=== PATIENT | male | born 1950 | race Caucasian/White ===

== ENCOUNTER 2016-08-29 16:16 | Emergency (ER) | payer MEDICARE, OTHER ==
[~2016-08-29] VITALS: Ht 172.7 cm; Wt 61.4 kg
[2016-08-29 16:28] VITALS: BP 119/77; PULSE 106; RESP 16; O2SAT 96
--- NOTE | 2016-08-29 18:04 | ED.REPORT ---
HPI-Extremity Problem Upper Date of Service Aug 29, 2016 ED Provider: Kai CardenasO. 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 The tip of the finger was initially dark and swollen, but blood began seeping through the skin this morning. The patient can move his finger and his pain is manageable. Nursing Notes Stated Complaint: SMASHED FINGER Chief Complaint: Extremity Trauma Nursing Notes Reviewed: Yes Allergies: Coded Allergies: No Known Allergies (Unverified , 05/04/16) General Time Seen by MD: 18:04 Chief Complaint Finger injury right 3 Hx Obtained From: Patient Arrived By: Walk-in Onset Occurred: 3 days ago Symptom Duration: Since onset Location: : Finger right 3 Quality: Painful Severity: Current: Mild Severity: Maximum: Moderate Associated with: Reports: Swelling, Wound discharge (Blood), Denies: Fever, Unable to move joint Pertinent Negative: Relieved by nothing Immunizations: Unknown Recent Healthcare: No recent doctor visit Similar Sx Previous: No Past Medical History Past Medical History Colon cancer s/p surgical removal and ileostomy Cancer of tongue and lymph node Past Surgical History Ileostomy Central line placement Bone marrow transplant Smoking History Unknown if Ever Smoker Social History Other Social History: Good social support, , From out of town Ambulatory Status Independent Review of Systems Constitutional: Denies: Fever Musculoskeletal: Reports: Extremity pain (Right 3rd Finger), Extremity swelling (Right 3rd Finger) Skin: Reports Bruising (Right 3rd Finger) Complete sys rev & neg: except as marked. Respiratory: Denies: Non-productive cough, Shortness of breath GI: Denies: Vomiting Hematologic: Reports Bleeding (Right 3rd Finger) Physical Exam Initial Vital Signs Vital Signs (First) Date Time Temp Pulse Resp B/P Pulse Ox O2 Delivery O2 Flow Rate FiO2 08/29/16 16:28 36.8 106 16 119/77 96 08/29/16 19:42 Room Air Initial VS: Reviewed Head / Eyes: Atraumatic, Normocephalic ENT: Conjunctiva normal, No scleral icterus Neck: Supple, Full range of motion Skin: Warm, Dry, No cyanosis Neurologic: Alert, Oriented, Nonfocal Psychiatric: Mood/affect normal, Behavior normal, Normal thought content General/Constitutional: Awake, Alert, No acute distress Appearance / Presentation: Negative: Pale Mask in place Respiratory / Chest: Breath sounds NL, Breath sounds = bilat, No respiratory distress Cardiovascular: Heart rate NL, Regular rhythm, Heart sounds NL Wrist / Hand: Full range of motion Finger Exam : Finger Exam: Positive: Ecchymosis present (Dorsal aspect), Erythema present (Mild, to distal aspect), Finger name... (R middle), Subungual hematoma (100%), Swelling present... (Over dorsal aspect) Interpretation & Diagnostics Lab Results Interpretation Result Diagram: 08/29/16189908/29/16 190 Test 08/29/16 19:00 White Blood Count 5.6th/mm3 (3.8-10.1) Red Blood Count 3.64mil/mm3 (4.40-5.80) Hemoglobin 11.5g/dL (13.8-17.2) Hematocrit 34.9% (41.0-50.0) Mean Corpuscular Volume 95.9fL (81-100) Mean Corpuscular Hemoglobin 31.6pg (27.0-35.0) Mean Corpuscular Hemoglobin Concent 33.0% (32.0-37.0) Red Cell Distribution Width 13.0% (12.3-15.4) Platelet Count 116bil/L (150-400) Neutrophils (%) (Auto) 57.8% (40-74) Lymphocytes (%) (Auto) 26.5% (14-46) Monocytes (%) (Auto) 15.1% (4-12) Eosinophils (%) (Auto) 0.4% (0-5) Basophils (%) (Auto) 0% (0-3) Prothrombin Time 9.9sec (8.1-12.5) Prothromb Time International Ratio 0.93ratio Activated Partial Thromboplast Time 30.3sec (22.8-33.0) Sodium Level 138mEq/L (134-144) Potassium Level 4.3mEq/L (3.5-5.2) Chloride Level 101mEq/L (97-108) Carbon Dioxide Level 23mmol/L (18-29) Blood Urea Nitrogen 19mg/dL (8-27) Creatinine 0.85mg/dL (0.76-1.27) Estimat Glomerular Filtration Rate 96mL/min (>59) Glucose Level 97mg/dL (60-99) Calcium Level 8.9mg/dL (8.5-10.1) Total Bilirubin 0.5mg/dL (0.0-1.2) Aspartate Amino Transf (AST/SGOT) 65U/L (0-50) Alanine Aminotransferase (ALT/SGPT) 112U/L (0-44) Alkaline Phosphatase 172U/L (25-160) Total Protein 6.4g/dL (6.4-8.4) Albumin 4.1g/dL (3.4-5.0) X-Ray Interpretation Xray Interpretation: IMPRESSION: Prominent soft tissue swelling, no fracture found. Dictated by: Norm Mistry M.D. on 08/29/2016 at 19:09 Study Performed: 3 Views X-Ray Ordered: Hand right (3rd Finger) Interpretation / Wet Read by: Interpret - Radiologist Procedures Subungual Hematoma Evacuation Time: 19:05 Procedure Performed by: ED physician Consent / Setup / Site Prep: Consent from patient, Time-out performed, Hand hygiene observed, Stand sterile technique Digit Involved: Middle finger right Preparation: Hibiclens - Chlorhexidine Trephination: Hot wire elcectocautery, Multiple holes (3), Hematoma evacuated Post-Procedure / Complications: No complications, Tolerated procedure well, Patient stable Re-Eval/Medical Decision Med Decision/Clinical Course The subungual hematoma was successfully drained. There is no evidence of skin necrosis. He was no tension on the skin. It is difficult to say if he has an infection or not. He is high enough risk that I will place him on a short course of clindamycin and we will have a wound check on Monday. He prefers to come back here to the emergency department have me look at it. He will come back Monday 6 PM and I will take the dressing down then. Source of Hx: Old records Re-Evaluation/Progress : Time of Eval: 19:21 Patient Status: Condition improved Re-Evaluation/Progress Note: Discussed with patient x-ray and lab results, diagnosis, and plan for discharge. Follow-up and return to the ER instructions given. Patient agrees with plan for care and all questions were addressed. Counseled Regarding: Diagnosis, Lab results, Need for follow-up, When/why to return to ED Discharge & Departure Impression: Primary Impression: Subungual hematoma Additional Impression: Crush injury of hand Encounter type: initial encounter Laterality: right Qualified Code: S67.21XA - Crushing injury of right hand, initial encounter Disposition: Home Discharge Condition All VS Reviewed: Yes Condition: Stable Patient Instructions: Contusions in Adults (ED), Subungual Hematoma (ED) Additional Instructions: Wear the tube gauze until Monday. Have the tube gauze taken off and have a wound check on Monday. Your primary care physician, the urgent care, or I can do this for you on Monday. In the meantime take clindamycin 3 times daily in the event you are developing an early infection. Take 1 oxycodone every 6 hours as needed for pain. Elevate your finger as much as possible. Stay on all your medications including the enoxaparin. Keep your surgical evaluation for the tongue cancer. Do not hesitate to return if if any problems or any worsening symptoms. Do not drive or drink alcohol while taking the oxycodone. Referrals: Catarino Shetty MD (PCP) Scribe Attestation Portions of this note were transcribed by Jovana Mercado. I, Dr. Stapleton, personally performed the history, physical exam, and medical decision-making; I reviewed and confirmed the accuracy of the information in the transcribed note. Signed by: Emelina Grant, 08/29/2016, 20:05 copies to: Catarino Shetty MD, Todd P DO Aug 29, 2016 18:04 JOVANA MERCADO Aug 29, 2016 18:26
--- NOTE | 2016-08-29 19:11 | DRSVH ---
PROCEDURE: X-RAY FINGERS, TWO VIEWS INDICATIONS: crush injury TECHNIQUE: AP hand, 3 views of the third finger(s) acquired. COMPARISON: None. FINDINGS: Bones: No fractures or dislocations. No suspicious bony lesions. Soft tissues: No suspicious soft tissue calcifications. IMPRESSION: Prominent soft tissue swelling, no fracture found. Dictated by: Norm Mistry M.D. on 08/29/2016 at 19:09 Approved by: Norm Mistry M.D. on 08/29/2016 at 19:10
[2016-08-29 19:13] LABS: BASOPHILS % (AUTO) 0 % (0-3); EOSINOPHILS % (AUTO) 0.4 % (0-5); MONOCYTES % (AUTO) 15.1 % (4-12); Mean Corpuscular Hemoglobin 31.6 pg (27.0-35.0); Mean Corpuscular Volume 95.9 fL (81-100); NEUTROPHILS % (AUTO) 57.8 % (40-74); Platelet Count 116 bil/L (150-400)
[2016-08-29 19:29] LABS: INR 0.93 ratio
[2016-08-29 19:42] VITALS: BP 124/80; PULSE 111; RESP 16; O2SAT 95
== END 2016-08-29 19:34 | disposition home or self-care (01) ==
LOC: SED 16:16
DX: S60.131A Contusion of right middle finger with damage to nail, initial encounter (principal); S67.21XA Crushing injury of right hand, initial encounter; W23.0XXA Caught, crushed, jammed, or pinched between moving objects, initial encounter; Y93.89 Activity, other specified; Y92.69 Other specified industrial and construction area as the place of occurrence of the external cause; Y99.0 Civilian activity done for income or pay; Z94.81 Bone marrow transplant status

== ENCOUNTER 2016-08-31 18:12 | Emergency (ER) | payer MEDICARE, OTHER ==
[~2016-08-31] VITALS: Ht 174 cm; Wt 61.4 kg
[2016-08-31 18:16] VITALS: BP 125/79; PULSE 99; RESP 18; O2SAT 99
--- NOTE | 2016-08-31 18:31 | ED.REPORT ---
[facility] Date of Service Aug 31, 2016 ED Provider: Ivan Stapleton DO This is a 65 year old male with a history of colon cancer presenting to the ED for wound re-check of R third finger after subungual hematoma evacuation procedure 3 days ago due to traumatic injury. Pt taking clindamycin as prescribed. Denies fever, chills, purulent drainage, nausea, or vomiting at this time. Nursing Notes Stated Complaint: FOLLOW UP ON FINGER Chief Complaint: Extremity Trauma Nursing Notes Reviewed: Yes Allergies: Coded Allergies: No Known Allergies (Unverified , 05/04/16) General Time Seen by Provider: 18:31 Chief Complaint Wound check Hx Obtained From: Patient Arrived By: Walk-in Onset Occurred: 3 days ago Symptom Duration: Since onset Severity: Current: No pain currently Pertinent Negative: Pt denies other symptoms Recent Healthcare: No recent doctor visit, No recent hospitalization Similar Sx Previous: No Past Medical History Past Medical History Colon cancer s/p surgical removal and ileostomy Cancer of tongue and lymph node Past Surgical History Ileostomy Central line placement Bone marrow transplant Smoking History Unknown if Ever Smoker Social History Other Social History: Good social support, , From out of town Ambulatory Status Independent Review of Systems Constitutional: Denies: Chills, Fever Complete sys rev & neg: except as marked. GI: Denies: Nausea, Vomiting Musculoskeletal: Reports: Extremity pain Physical Exam Initial Vital Signs Vital Signs (First) Date Time Temp Pulse Resp B/P Pulse Ox O2 Delivery O2 Flow Rate FiO2 08/31/16 18:16 36.4 99 18 125/79 99 Room Air Initial VS: Reviewed General/Constitutional: Well-developed, Well-nourished Head / Eyes: Atraumatic ENT: Conjunctiva normal, No scleral icterus Neck: Supple, Non-tender Cardiovascular: Intact distal pulses Extremities: Vascular intact, Neuro intact, No swelling, No tenderness Neurologic: Alert, Oriented, Nonfocal Psychiatric: Mood/affect normal, Behavior normal, Normal thought content Skin: Warm, Dry Wound healing well at 3 R digit Re-Eval/Medical Decision Med Decision/Clinical Course The hematoma is getting smaller. It drained a little bit more blood tonight. No active bleeding. No signs of cellulitis. I think Freddy is healing very well. He is to wear the tube gauze for 2 more days, after that he will wear a bandage. He will continue with the full 5 days of clindamycin. Counseled Regarding: Diagnosis, Lab results, Need for follow-up, When/why to return to ED Discharge & Departure Impression: Primary Impression: Encounter for wound re-check Disposition: Home Discharge Condition All VS Reviewed: Yes Condition: Stable Patient Instructions: Acute Wound Care (ED) Additional Instructions: The wound appears to be healing well. Continue to keep it wrapped. You may take the gauze off in the next 2-3 days, then keep the wound bandaged. Complete the clindamycin course as prescribed at your previous visit. Follow-up with your primary care provider. Return to the emergency department if you develop any new or worsening symptoms such as fever, chills, or drainage from the site. Referrals: Catarino Shetty MD (PCP) Scribe Attestation Portions of this note were transcribed by Ga Muñoz. I, Dr. Stapleton personally performed the history, physical exam and medical decision-making; I reviewed and confirmed the accuracy of the information in the transcribed note. Signed by Emelina Babin, 08/31/2016 at 23:30. Ivan Stapleton DO Aug 31, 2016 18:31 GA MUÑOZ Aug 31, 2016 19:08
== END 2016-08-31 20:08 | disposition home or self-care (01) ==
LOC: SED 18:12
DX: S60.031D Contusion of right middle finger without damage to nail, subsequent encounter (principal); X58.XXXD Exposure to other specified factors, subsequent encounter; Y92.9 Unspecified place or not applicable; Y93.9 Activity, unspecified; Y99.9 Unspecified external cause status